=== PATIENT | male | born 1990 | race Caucasian/White ===

== ENCOUNTER 2017-02-24 19:00 | Emergency (ER) | payer OTHER ==
[2017-02-24] MEDS ORDERED: DOXYCYCLINE HYCLATE 100 MG TABLET ONE (20:59)
== END 2017-02-24 21:12 | disposition home or self-care (01) ==
LOC: ED 19:00
DX: N48.22 Cellulitis of corpus cavernosum and penis (principal); F17.210 Nicotine dependence, cigarettes, uncomplicated
CPT/HCPCS: 99282; 99283; A9270